=== PATIENT | female | born 1985 | race Caucasian/White ===

== ENCOUNTER 2019-01-08 05:08 | Inpatient (IN) | payer OTHER ==
[~2019-01-08] VITALS: Ht 175.3 cm; Wt 120.0 kg
[~2019-01-08 05:08] MED LIST: IBUP800 PO; OXYACE5T PO; Verotin-Gr Cap1 EACH PO
[2019-01-08] MEDS ORDERED: PRENATAL TABLE1 EAC2 PO (05:51)
[2019-01-08 05:59] LABS: BASOPHILS ABSOLUTE AUTO 0.06 K/mm3 (0.00-0.23); BASOPHILS PERCENT AUTO 1 % (0-2); EOSINOPHILS ABSOLUTE AUTO 0.09 K/mm3 (0.00-0.68); EOSINOPHILS PERCENT AUTO 1 % (0-6); Hematocrit 41.2 % (33.0-51.0); Hemoglobin 13.7 g/dL (11.5-16.0); IMMATURE GRAN ABSOLUTE AUTO 0.06 K/mm3 (0.00-0.10); IMMATURE GRAN PERCENT AUTO 1 % (0-1); LYMPHOCYTES ABSOLUTE AUTO 1.95 K/mm3 (0.84-5.20); LYMPHOCYTES PERCENT AUTO 16 % (21-46); MONOCYTES ABSOLUTE AUTO 0.69 K/mm3 (0.16-1.47); MONOCYTES PERCENT AUTO 6 % (4-13); Mean Corpuscular HGB 30.6 pg (26.0-34.0); Mean Corpuscular HGB Conc 33.3 g/dL (31.5-36.5); Mean Corpuscular Volume 92 fL (80-100); Mean Platelet Volume 9.5 fL (9.1-12.4); NEUTROPHILS ABSOLUTE AUTO 9.02 K/mm3 (1.96-9.15); NEUTROPHILS PERCENT AUTO 76 % (41-73); Platelet Count 226 K/mm3 (150-400); RDW Coefficient Variation 12.7 % (11.7-14.2); RDW Standard Deviation 42.9 fL (35.1-46.3); Red Blood Cell Count 4.48 M/mm3 (3.80-5.20); White Blood Cell Count 11.87 K/mm3 (4.00-11.30)
--- NOTE | 2019-01-08 13:14 | NUR ---
01/08/19 1313 Laron Hutton PATIENT ARRIVED TO OR WITH SAMANIEGO CATH IN PLACE, DRAINING RED TINGED URINE. DR DONATO AWARE. EPIDURAL CATH INJECTED FOR PROCEDURE PER DR. LARSEN.
[2019-01-08 13:42] LABS: pH Cord - Arterial 7.02 (7.28-7.35)
[2019-01-08 13:43] LABS: PO2 Cord - Arterial < 13 mmHg (16-20)
[2019-01-08 13:45] LABS: PCO2 Cord - Venous 69.2 mmHg (40-50); PO2 Cord - Venous < 13 mmHg (28-32); pH Umbilical Cord - Venous 7.09 (7.26-7.35)
[2019-01-08 18:24] LABS: BASOPHILS ABSOLUTE AUTO 0.03 K/mm3 (0.00-0.23); BASOPHILS PERCENT AUTO 0 % (0-2); EOSINOPHILS ABSOLUTE AUTO 0.01 K/mm3 (0.00-0.68); EOSINOPHILS PERCENT AUTO 0 % (0-6); Hematocrit 32.3 % (33.0-51.0); IMMATURE GRAN ABSOLUTE AUTO 0.07 K/mm3 (0.00-0.10); IMMATURE GRAN PERCENT AUTO 0 % (0-1); LYMPHOCYTES ABSOLUTE AUTO 1.25 K/mm3 (0.84-5.20); LYMPHOCYTES PERCENT AUTO 8 % (21-46); MONOCYTES ABSOLUTE AUTO 1.14 K/mm3 (0.16-1.47); MONOCYTES PERCENT AUTO 7 % (4-13); Mean Corpuscular HGB 30.6 pg (26.0-34.0); Mean Corpuscular HGB Conc 34.1 g/dL (31.5-36.5); Mean Corpuscular Volume 90 fL (80-100); Mean Platelet Volume 9.4 fL (9.1-12.4); NEUTROPHILS ABSOLUTE AUTO 13.47 K/mm3 (1.96-9.15); NEUTROPHILS PERCENT AUTO 84 % (41-73); Platelet Count 178 K/mm3 (150-400); RDW Coefficient Variation 12.8 % (11.7-14.2); RDW Standard Deviation 41.7 fL (35.1-46.3); Red Blood Cell Count 3.59 M/mm3 (3.80-5.20); White Blood Cell Count 15.97 K/mm3 (4.00-11.30)
--- NOTE | 2019-01-08 19:30 | NUR ---
REPORT RECIEVED FROM KARINE Morales ASSUMED CARE OF PT.
[2019-01-09 05:45] LABS: BASOPHILS ABSOLUTE AUTO 0.04 K/mm3 (0.00-0.23); BASOPHILS PERCENT AUTO 0 % (0-2); EOSINOPHILS ABSOLUTE AUTO 0.04 K/mm3 (0.00-0.68); EOSINOPHILS PERCENT AUTO 0 % (0-6); Hemoglobin 10.4 g/dL (11.5-16.0); IMMATURE GRAN ABSOLUTE AUTO 0.05 K/mm3 (0.00-0.10); IMMATURE GRAN PERCENT AUTO 1 % (0-1); LYMPHOCYTES ABSOLUTE AUTO 1.34 K/mm3 (0.84-5.20); LYMPHOCYTES PERCENT AUTO 12 % (21-46); MONOCYTES ABSOLUTE AUTO 0.76 K/mm3 (0.16-1.47); MONOCYTES PERCENT AUTO 7 % (4-13); Mean Corpuscular HGB 30.5 pg (26.0-34.0); Mean Corpuscular HGB Conc 33.5 g/dL (31.5-36.5); Mean Corpuscular Volume 91 fL (80-100); Mean Platelet Volume 9.2 fL (9.1-12.4); NEUTROPHILS ABSOLUTE AUTO 8.84 K/mm3 (1.96-9.15); NEUTROPHILS PERCENT AUTO 80 % (41-73); Platelet Count 150 K/mm3 (150-400); RDW Coefficient Variation 12.9 % (11.7-14.2); RDW Standard Deviation 42.5 fL (35.1-46.3); Red Blood Cell Count 3.41 M/mm3 (3.80-5.20); White Blood Cell Count 11.07 K/mm3 (4.00-11.30)
--- NOTE | 2019-01-09 13:44 | NUR ---
IV 20G IN LEFT HAND SINCE SURGERY 01/08/19
--- NOTE | 2019-01-09 19:12 | NUR ---
AT 1700 PT WAS UP TO ATTEMPT TO VOID, WHILE HELPING CHANGE THE PAD CLEAR BLOODY FLUID WAS RUNNING DOWN THE PATIENTS LEG, AND PAD APPEARED TO HAVE URINE IN IT. PT WAS UNABLE TO VOID DURING THIS TIME. PLACED A HAT IN THE PTS TOLIET AND INFORMED HER TO CALL WHEN NEEDING TO VOID. AT 1800 CHECKED WITH PT STATING SHE STILL HAD NO FEELING TO VOID. PALPATED UTERUS WHICH WAS MIDLINE AND FIRM. INFORMED PATIENT THAT SHE NEEDED TO BE UP TO THE RESTROOM WITH IN THE HOUR TO ATTEMPT TO VOID.
[2019-01-09 20:59] LABS: Source, Urine Catheter
[2019-01-09 21:01] LABS: Bilirubin, Urine Neg (Neg); Blood, Urine 3+ (Neg); Glucose Qualitative, Urine Neg (Neg); Ketones, Urine Neg (Neg); Leukocyte Esterase, Urine Neg (Neg); Nitrite, Urine Neg (Neg); Protein, Urine Neg (Neg); Urobilinogen, Urine NORM (Normal)
[2019-01-09 21:12] LABS: Appearance, Urine Clear (Clear); Color, Urine Yellow (P-Yellow)
[2019-01-09 21:13] LABS: Amorphous Light (0-Heavy); Bacteria Few /hpf; Red Blood Cells, Urine 0-2 /hpf (0-2); Squamous Epithelial Cells Few /hpf (Few); White Blood Cells, Urine 0-2 /hpf (0-5)
--- NOTE | 2019-01-09 22:00 | NUR ---
ASSUME CARE OF PT RECIEVED REPORT FROM Oliverio SINGH
--- NOTE | 2019-01-09 22:28 | NUR ---
PT HAS NOT BEEN ABLE TO VOID SINCE SAMANIEGO WAS REMOVED AT 1300. WILL NOTIFY PROVIDER.
--- NOTE | 2019-01-09 22:32 | NUR ---
SAMANIEGO PLACED (IN AND OUT) AT [address] DONATO FOR INABILITY TO VOID. INSERTED BY TOTER ANDREA, OBSERVED BY THIS NURSE. STERILE FIELD MAINTAINED. BLADDER SCAN SHOWED >580 BEFORE PLACING. CATH REMOVED AT 2125, 1200ML. CATHY, RN
--- NOTE | 2019-01-09 23:19 | NUR ---
UNABLE TO VOID PT UNABLE TO VOID. PT WALKING HALLWAY WILL ATTEMP TO VOID AGAIN AFTER AMBULATING HALLS. IF PT UNABLE TO VOID. RN WILL NOTIFY
--- NOTE | 2019-01-10 00:09 | NUR ---
UNABLE TO VOID RN BLADDER SCANNED PT. BLADDER SCAN READS 430ML. RN TO NOTIFY PROVIDER.
--- NOTE | 2019-01-10 00:36 | NUR ---
SAMANIEGO INSERTED SAMANIEGO INSERTED USING STERILE TECHNIQUE. UA COLLECTED AND SENT. PT TOLERATED WELL.
[2019-01-10 00:52] LABS: Source, Urine Catheter
--- NOTE | 2019-01-10 04:55 | NUR ---
PT PASSING FLATULANCE
[2019-01-10 05:41] LABS: Appearance, Urine Clear (Clear); Bilirubin, Urine Neg (Neg); Color, Urine Yellow (P-Yellow); Glucose Qualitative, Urine Neg (Neg); Ketones, Urine Neg (Neg); Leukocyte Esterase, Urine 2+ (Neg); Nitrite, Urine Neg (Neg); Protein, Urine 1+ (Neg); Urobilinogen, Urine NORM (Normal)
[2019-01-10 05:42] LABS: Bacteria Mod /hpf; Blood, Urine 5+ (Neg); Red Blood Cells, Urine 0-2 /hpf (0-2); Squamous Epithelial Cells Few /hpf (Few)
--- NOTE | 2019-01-10 15:02 | NUR ---
at 1200 orders given by javier killian to start bladder training. clamp for 2 hrs, release, clamp again for 2 hrs and then d/c vázquez and have pt void. clamped at 1227,unclamped at 1430, reclamped at 1440.
--- NOTE | 2019-01-10 21:10 | NUR ---
PATIENT HAS BEEN UNABLE TO VOID SINCE SAMANIEGO WAS TAKEN OUT AT 1750
--- NOTE | 2019-01-10 21:15 | NUR ---
PATIENT STATED SHE WAS ABLE TO VOID A SMALL AMOUNT AT 2114
--- NOTE | 2019-01-11 02:30 | NUR ---
PATIENT COMPLAINS OF SHARP BURNING PAIN IN R. LOWER ABD WITH SUDDEN ONSET UPON STANDING AT 0230 . VITALS ARE ALL WITHIN NORMAL RANGE, INCISION IS APPROXIMATED, C/D/I, AND BLADDER SCAN WAS 327ML. SIMETHICONE AND 2 PERCOCET WERE GIVEN 30 MIN PRIOR TO THIS.
--- NOTE | 2019-01-11 03:08 | NUR ---
UPDATED ON PATIENT. MILEY ORDERED FOR BREAK THROUGH PAIN. WARM BLANKETS PROVIDED COMFORT MEASURE. FOOT MASSAGE OFFERED FOR DISTRACTION. PATIENT'S OFFERED TO RUB FEET.
[2019-01-11 05:25] LABS: BASOPHILS ABSOLUTE AUTO 0.04 K/mm3 (0.00-0.23); BASOPHILS PERCENT AUTO 0 % (0-2); EOSINOPHILS ABSOLUTE AUTO 0.15 K/mm3 (0.00-0.68); EOSINOPHILS PERCENT AUTO 2 % (0-6); Hematocrit 28.2 % (33.0-51.0); Hemoglobin 9.5 g/dL (11.5-16.0); IMMATURE GRAN ABSOLUTE AUTO 0.05 K/mm3 (0.00-0.10); IMMATURE GRAN PERCENT AUTO 1 % (0-1); LYMPHOCYTES ABSOLUTE AUTO 1.17 K/mm3 (0.84-5.20); LYMPHOCYTES PERCENT AUTO 12 % (21-46); MONOCYTES ABSOLUTE AUTO 0.54 K/mm3 (0.16-1.47); MONOCYTES PERCENT AUTO 5 % (4-13); Mean Corpuscular HGB 31.4 pg (26.0-34.0); Mean Corpuscular HGB Conc 33.7 g/dL (31.5-36.5); Mean Corpuscular Volume 93 fL (80-100); Mean Platelet Volume 9.3 fL (9.1-12.4); NEUTROPHILS ABSOLUTE AUTO 8.07 K/mm3 (1.96-9.15); NEUTROPHILS PERCENT AUTO 81 % (41-73); Platelet Count 194 K/mm3 (150-400); RDW Standard Deviation 44.3 fL (35.1-46.3); Red Blood Cell Count 3.03 M/mm3 (3.80-5.20); White Blood Cell Count 10.02 K/mm3 (4.00-11.30)
--- NOTE | 2019-01-11 09:00 | NUR ---
BLADDER SCANNED PATIENT PER DR. DONATO. 117 ML IN.
--- NOTE | 2019-01-13 08:30 | NUR ---
DISCUSSED SAMANIEGO CATH CARE FOR AT HOME WITH PATIENT. WILL HAVE LEG BAG AND TOWELLETS TO CLEAN SAMANIEGO CATH. PT VERBALIZED UNDERSTANDING, HAS TOWELLETS SITTING AT TOILET BEDSIDE FOR PT TO USE WHEN DOES PERICARE EVERY 3-4 HOURS AND CHANGES KATHLEEN PAD
[2019-01-13] MEDS ORDERED: CEPH500 PO (09:35)
[2019-01-13] MEDS ORDERED: IBUP800 PO (09:35)
[2019-01-13] MEDS ORDERED: Percocet 5-3251 EACH PO (09:35)
[2019-01-13] MEDS ORDERED: DOCU100 PO (09:36)
--- NOTE | 2019-01-13 09:40 | NUR ---
KEFLEX 500MG PO BID X7 DAYS CALLED TO [facility] PER PT CHOICE, TALKED TO XENA MANCILLA
--- NOTE | 2019-01-13 11:35 | NUR ---
dc home at 1135 with baby and , baby was discharged 10-17, pt ambulate out.
== END 2019-01-13 11:35 | disposition home or self-care (01) | DRG 788 ==
LOC: BC 05:08 → OBS 05:08 → BC 05:34
PROVIDERS: Family Medicine; ADMIT Nurse Practitioner Obstetrics & Gynecology
PROC: 10D00Z1 Extraction of Products of Conception, Low, Open Approach (ICD-10-PCS; principal; 2019-01-09)
PROC: 0UB90ZZ Excision of Uterus, Open Approach (ICD-10-PCS; 2019-01-09)
PROC: 6A550ZT Pheresis of Cord Blood Stem Cells, Single (ICD-10-PCS; 2019-01-09)
DX: O34.211 Maternal care for low transverse scar from previous cesarean delivery (principal); O36.8330 Maternal care for abnormalities of the fetal heart rate or rhythm, third trimester, not applicable or unspecified; Z3A.40 40 weeks gestation of pregnancy; Z37.0 Single live birth; O62.2 Other uterine inertia; K66.0 Peritoneal adhesions (postprocedural) (postinfection); N32.89 Other specified disorders of bladder
CPT/HCPCS: 36415; 51702; 74176; 74177; 81001; 82803; 85025; 86850; 86900; 86901; 87086; J0295; J0690; J1170; J1580; J1885; J2001; J2210; J2250; J2405; J2550; J2590; J2765; J3010; J7120; Q9967

== ENCOUNTER 2024-12-13 17:22 | Emergency (ER) | payer OTHER ==
[~2024-12-13] VITALS: Ht 175.3 cm; Wt 131.5 kg
[~2024-12-13 17:22] MED LIST changes: +Atarax10 MG PO; +CEPH500 PO; +DOCU100 PO; +PRENATAL TABLE1 EAC2 PO; +Percocet 5-3251 EACH PO
[2024-12-13] MEDS ORDERED: Ketorolac Tromethamine 15mg Vial IV ONE (17:40)
[2024-12-13 18:01] LABS: BASOPHILS ABSOLUTE AUTO 0.09 K/mm3 (0.00-0.23); BASOPHILS PERCENT AUTO 1 % (0-2); EOSINOPHILS ABSOLUTE AUTO 0.10 K/mm3 (0.00-0.68); EOSINOPHILS PERCENT AUTO 1 % (0-6); Hematocrit 41.8 % (33.0-51.0); Hemoglobin 14.1 g/dL (11.5-16.0); IMMATURE GRAN ABSOLUTE AUTO 0.04 K/mm3 (0.00-0.10); IMMATURE GRAN PERCENT AUTO 0 % (0-1); LYMPHOCYTES ABSOLUTE AUTO 1.68 K/mm3 (0.84-5.20); LYMPHOCYTES PERCENT AUTO 15 % (21-46); MONOCYTES ABSOLUTE AUTO 0.54 K/mm3 (0.16-1.47); MONOCYTES PERCENT AUTO 5 % (4-13); Mean Corpuscular HGB Conc 33.7 g/dL (31.5-36.5); Mean Corpuscular Volume 87 fL (80-100); NEUTROPHILS ABSOLUTE AUTO 9.13 K/mm3 (1.96-9.15); NEUTROPHILS PERCENT AUTO 79 % (41-73); NRBC ABSOLUTE 0.00 K/mm3 (0.00-0.02); NRBC Auto 0.0 /100 WBC (0.0-0.2); Platelet Count 387 K/mm3 (150-400); RDW Coefficient Variation 12.9 % (11.7-14.2); RDW Standard Deviation 41.0 fL (35.1-46.3)
[2024-12-13 18:29] LABS: Alanine Aminotransfer (ALT/SGP 22.0 U/L (12-78); Albumin, Blood 3.6 g/dL (3.4-5.0); Albumin/Globulin Ratio 0.9 (0.8-1.8); Anion Gap 6.0 mmol/L (3-11); Aspartate Aminotrans (AST/SGOT 21.0 U/L (12-37); Bilirubin, Total 0.2 mg/dL (0.1-1.0); Blood Urea Nitrogen 9.0 mg/dL (8-24); CO2, Blood 28.0 mmol/L (21-32); Calcium, Blood 9.4 mg/dL (8.5-10.1); Chloride, Blood 108.0 mmol/L (98-108); Creatinine, Blood 0.9 mg/dL (0.40-1.00); Globulin, Blood 4.2 g/dL (2.2-4.0); Glucose, Blood 128.0 mg/dL (70-99); Potassium, Blood 3.9 mmol/L (3.5-5.5); Sodium, Blood 138.0 mmol/L (136-145); Total Protein, Blood 7.8 g/dL (6.4-8.2)
[2024-12-13 20:00] VITALS: BP 134/94
== END 2024-12-13 20:25 | disposition home or self-care (01) ==
LOC: ER 17:22
PROVIDERS: Emergency Medicine
DX: R42 Dizziness and giddiness (principal); R51.9 Headache, unspecified
CPT/HCPCS: 80053; 84443; 84703; 85025; A9270; J1885